=== PATIENT | male | born 1965 | race Caucasian/White ===

== ENCOUNTER 2023-01-13 04:06 | Emergency (ER) | payer SELFPAY ==
[~2023-01-13] VITALS: Ht 162.6 cm; Wt 68.0 kg
[2023-01-13] MEDS ORDERED: KETOROLAC TROMETHAMINE INJ 60 MG/2 ML VIAL IM ONE ×2 (04:26→04:30)
[2023-01-13] MEDS ORDERED: KETO10TA2 PO (04:40)
[2023-01-13 06:30] VITALS: BP 144/89; TEMP 98.2; O2SAT 96
== END 2023-01-13 06:31 | disposition home or self-care (01) ==
LOC: ER 04:16
DX: S13.9XXA Sprain of joints and ligaments of unspecified parts of neck, initial encounter (principal); V89.2XXA Person injured in unspecified motor-vehicle accident, traffic, initial encounter; Y93.89 Activity, other specified; Y92.89 Other specified places as the place of occurrence of the external cause; Y99.8 Other external cause status
CPT/HCPCS: 99285; 72125; 96372; J1885